=== PATIENT | female | born 1990 | race Caucasian/White ===

== ENCOUNTER 2021-09-01 21:42 | Observation (INO) | payer OTHER ==
[~2021-09-01] VITALS: Ht 165.1 cm; Wt 86.2 kg
[~2021-09-01 21:42] MED LIST: PREDNISONE20 MG PO; ZYRTEC10 MG PO
[2021-09-01 23:41] LABS: HEMOGLOBIN 12.1 gm/dl (12.3-15.3); RED BLOOD COUNT 4.2 M/UL (4.00-5.10); WHITE BLOOD COUNT 8.8 K/UL (4.5-11.0)
[2021-09-02 00:04] LABS: BUN/CREATININE RATIO 13 (0-10)
[2021-09-02] MEDS ORDERED: LEVOCETIRIZINE D5 MG PO (10:08)
[2021-09-02] MEDS ORDERED: INDERAL TAB 1010 MG PO (10:08)
[2021-09-02] MEDS ORDERED: MONTELUKAST SOD10 MG PO (10:09)
[2021-09-02] MEDS ORDERED: FOLIC ACID 1 MG1 MG PO (10:10)
[2021-09-02] MEDS ORDERED: IBU800 MG PO (10:54)
[2021-09-02] MEDS ORDERED: PRENATAL MULTI1 EAC4 PO (10:55)
[2021-09-02] MEDS ORDERED: ONDANSETRON HCL4 MG PO (10:55)
[2021-09-02] MEDS ORDERED: ASPIRIN EC81 MG PO (19:11)
[2021-09-02] MEDS ORDERED: PROPRANOLOL HCL60 M1 PO (19:11)
== END 2021-09-02 19:44 | disposition home or self-care (01) ==
LOC: ER1 21:42 → CDU 09-02 03:20 → M/S 09-02 10:30
PROVIDERS: Family Medicine; ADMIT Internal Medicine
DX: R53.1 Weakness (principal); R47.81 Slurred speech; N39.0 Urinary tract infection, site not specified; G43.809 Other migraine, not intractable, without status migrainosus; J30.9 Allergic rhinitis, unspecified; R00.0 Tachycardia, unspecified; U09.9 Post COVID-19 condition, unspecified; Z88.8 Allergy status to other drugs, medicaments and biological substances; Z79.899 Other long term (current) drug therapy
CPT/HCPCS: 70496; 70498; 70551; 71045; 80053; 82550; 82553; 84484; 85025; 85610; 92507; 92610; 93005; 99285; G0378; Q9967